=== PATIENT | female | born 1995 | race Caucasian/White ===

== ENCOUNTER 2019-05-02 14:13 | Inpatient (IN) ==
[2019-05-02] MEDS ORDERED: Famotidine 20 MG/2 ML VIAL IVP PRN (14:20)
[2019-05-02] MEDS ORDERED: Naloxone 0.4 MG/ML INJ IVP PRN (14:20)
[2019-05-02] MEDS ORDERED: Ondansetron 4 MG/2 ML VIAL IVP PRN (14:20)
[2019-05-02] MEDS ORDERED: *HR* Nalbuphine 10 MG/ML AMPUL IVP PRN (14:20)
[2019-05-02] MEDS ORDERED: Metoclopramide 10 MG/2 ML VIAL IVP PRN (14:20)
[2019-05-02] MEDS ORDERED: miSOPROStoL 25 MCG TABLET PO STA (14:22)
[2019-05-02 16:09] LABS: Basophils % 0.3 %; Eosinophils % 0.1 %; Hematocrit 40.2 % (35.3-44.9); Hemoglobin 13.4 g/dL (11.5-15.4); Immature Granulocytes % 0.3 % (0-4); Lymphocytes # 1.5 K/mcL (0.6-4.6); Lymphocytes % 12.7 %; Mean Corpuscular HGB Conc 33.3 g/dL (31.6-35.5); Mean Corpuscular Hemoglobin 27.7 pg (28.0-33.3); Mean Corpuscular Volume 83.2 fL (83.0-100.0); Mean Platelet Volume 14.7 fL (9.4-12.4); Monocytes # 0.8 K/mcL (0.0-1.3); Monocytes % 7.1 %; Neutrophils # 9.2 K/mcL (1.6-8.9); Platelet Count 185 K/mcL (140-400); Red Blood Count 4.83 M/mcL (3.82-4.97); Red Cell Distribution Width 14.6 % (11.5-14.5); Segmented Neutrophils % 79.5 %; White Blood Count 11.6 K/mcL (4.3-11.1)
[2019-05-02 16:11] LABS: Amphetamine Screen,Urine Negative ng/mL (Cutoff=1000); Barbiturate Screen,Urine Negative ng/mL (Cutoff=200); Benzodiazepines Screen,Urine Negative ng/mL (Cutoff=200); Cannabinoid Screen,Urine Negative ng/mL (Cutoff = 50); Cocaine Screen,Urine Negative ng/mL (Cutoff= 300); Opiate Screen,Urine Negative ng/mL (Cutoff=300); Phencyclidine Screen,Urine Negative ng/mL (Cutoff=25)
[2019-05-02 16:16] LABS: Alanine Aminotransferase 19 Units/L (7-52); Aspartate Amino Transferase 22 Units/L (13-39); BUN/Creatinine Ratio 23 (6-26); Blood Urea Nitrogen 16 mg/dL (6-20); Lactate Dehydrogenase 165 Units/L (140-271); eGFR For African Americans > 60 (> 60); eGFR For Non-African Americans > 60 (> 60)
[2019-05-02 16:26] LABS: Protein/Creatinine Ratio,Urine 8.26 mg/mg (0.00-0.20)
[2019-05-02] MEDS ORDERED: *HR* FentaNYL (PF) 100 MCG/2 ML VIAL EP ONE (19:33)
[2019-05-02] MEDS ORDERED: *HR* FentaNYL (PF) 100 MCG/2 ML VIAL ONE (19:41)
[2019-05-02] MEDS: Ringers Solution, Lactated 1,000 ML IVC SCH (19:41)
[2019-05-02] MEDS ORDERED: Oxytocin 20 units/ LR 1000 mL 20 UNIT/1,000 ML BAG IVC SCH (20:30)
[2019-05-03] MEDS: Ringers Solution, Lactated 1,000 ML IVC SCH ×2 (01:06→04:58)
[2019-05-03] MEDS: Epidural Premix (fent/bupiv) 110 ML EP SCH ×2 (01:30→08:59)
[2019-05-03] MEDS ORDERED: Acetaminophen 325 MG TABLET PO PRN (13:05)
[2019-05-03] MEDS ORDERED: Oxytocin 20 units/ LR 1000 mL 20 UNIT/1,000 ML BAG IVC SCH (13:05)
[2019-05-03] MEDS ORDERED: Ibuprofen 600 MG TABLET PO PRN (13:05)
[2019-05-03] MEDS ORDERED: Measles/Mumps/Rubella Vacc 0.5 ML VIAL SQ PRN (13:05)
[2019-05-04 02:44] LABS: Basophils % 0.1 %; Eosinophils % 0.2 %; Hematocrit 34.5 % (35.3-44.9); Immature Granulocytes % 0.5 % (0-4); Lymphocytes # 2.8 K/mcL (0.6-4.6); Mean Corpuscular HGB Conc 33.3 g/dL (31.6-35.5); Mean Corpuscular Volume 84.1 fL (83.0-100.0); Mean Platelet Volume 13.5 fL (9.4-12.4); Monocytes % 5.9 %; Neutrophils # 13.5 K/mcL (1.6-8.9); Platelet Count 153 K/mcL (140-400); Red Cell Distribution Width 15.3 % (11.5-14.5); Segmented Neutrophils % 77.3 %
[2019-05-04 02:49] LABS: Hemoglobin 11.5 g/dL (11.5-15.4); White Blood Count 17.4 K/mcL (4.3-11.1)
[2019-05-04 03:53] LABS: Alanine Aminotransferase 19 Units/L (7-52); Aspartate Amino Transferase 32 Units/L (13-39); BUN/Creatinine Ratio 17 (6-26); Blood Urea Nitrogen 11 mg/dL (6-20); Lactate Dehydrogenase 220 Units/L (140-271); eGFR For African Americans > 60 (> 60); eGFR For Non-African Americans > 60 (> 60)
[2019-05-04 05:06] VITALS: BP 146/84
[2019-05-04] MEDS ORDERED: Prenatal Vit/FA 1 EACH TABLET PO SCH (09:00)
== END 2019-05-04 05:50 | disposition home or self-care (01) | DRG 807 ==
LOC: 1NENULAB → OBSVTOIN 14:13 → 1NENUOBS 05-03 13:04
PROVIDERS: ADMIT Advanced Practice Midwife; ATTEND Advanced Practice Midwife